=== PATIENT | male | born 1950 | race Caucasian/White ===

== ENCOUNTER 2019-03-09 07:22 | Day surgery (SDC) | payer MEDICARE, OTHER ==
[~2019-03-09] VITALS: Ht 165.1 cm; Wt 72.6 kg
[~2019-03-09 07:22] MED LIST: LIDOCAINE 2% (SDV) 5 ML INJ ONE
[2019-03-09] MEDS ORDERED: PRAVASTATIN SODIUM (08:06)
[2019-03-09] MEDS ORDERED: FLOMAX (08:06)
[2019-03-09 08:07] VITALS: Ht 165.1 cm; Wt 72.6 kg
[2019-03-09 08:15] VITALS: BP 136/70; PULSE 55; RESP 18
[2019-03-09] MEDS ORDERED: PROPOFOL 20 ML ONE (08:20)
--- NOTE | 2019-03-09 08:34 | PREAC ---
Date/Time of Note Date/Time of Note DATE: 03/09/19 TIME: 08:25 Anesthesia Eval and Record Evaluation Time Pre-Procedure Interview DATE: 03/09/19 TIME: 08:25 Age 68 Sex male NPO: 8 hrs Preoperative diagnosis Occult Blood Planned procedure Screening Colonoscopy Past Medical History Past Medical History: Includes Cardio: Dyslipidemia Renal: Other (BPH) Surgery & Anesthesia Issues No known issue Meds Anticoagulation: No Beta Smith within 24 hr: No Reason Beta Smith not given: Pt. not on B-Smith Reported Medications [Pravastatin Sodium] No Conflict Check 03/09/19 [Flomax] No Conflict Check 03/09/19 Meds reviewed: Yes Allergies Coded Allergies: No Known Allergy (Unverified , 03/09/19) Allergies Reviewed: Yes Labs/Studies Labs Reviewed: Other (not indicated) test: N/A Pre-procedure Exam Last vitals Vital Signs Date Temp Pulse Resp B/P (MAP) Pulse Ox O2 O2 Flow FiO2 Time Delivery Rate 03/09/19 97.7 55 18 136/70 99 Room Air 08:15 (92) Airway: Adequate mouth opening, Adequate thyromental dist Mallampati: Mallampati II Teeth: Normal Lung: Normal Heart: Normal ASA Physical Status ASA physical status: 2 Emergency: None Planned Anesthetic General/MAC: MAC Pre-operative Attestations Prior to commencing anesthesia and surgery, the patient was re-evaluated, there was verification of: *The patient's identity *The results of appropriate recent lab work and preoperative vital signs *The above evaluation not changing prior to induction *Anesthetic plan, risk benefits, alternative and complications discussed with patient/family; questions answered; patient/family understands, accepts and wishes to proceed. Single End Sewer used ([id number]) [employer] Mar 09, 2019 08:34
--- NOTE | 2019-03-09 09:11 | PAC ---
Date/Time of Note Date/Time of Note DATE: 03/09/19 TIME: 09:10 Post-Anesthesia Notes Post-Anesthesia Note Last documented vital signs BP 105/60, HR 51, SpO2 100, RR 14 Vital Signs Date Temp Pulse Resp B/P (MAP) Pulse Ox O2 O2 Flow FiO2 Time Delivery Rate 03/09/19 97.7 55 18 136/70 99 Room Air 08:15 (92) Activity: WNL Respiratory function: WNL Cardiovascular function: WNL Mental status: Baseline Pain reasonably controlled: Yes Hydration appropriate: Yes Nausea/Vomiting absent: Yes [employer] CRNA Mar 09, 2019 09:11
[2019-03-09 09:38] VITALS: BP 117/65; RESP 20
== END 2019-03-09 11:58 | disposition home or self-care (01) ==
LOC: GIL 07:22
PROVIDERS: ATTEND Internal Medicine Gastroenterology
DX: Z12.11 Encounter for screening for malignant neoplasm of colon (principal); K64.8 Other hemorrhoids; D12.6 Benign neoplasm of colon, unspecified
CPT/HCPCS: 88305